=== PATIENT | female | born 1970 | race Caucasian/White ===

== ENCOUNTER → 2020-10-15 10:45 | Outpatient (BNVA) | payer BC, SELFPAY | PROVIDERS: PCP Internal Medicine; Visit Provider Internal Medicine | DX: M25.50 Pain in unspecified joint (principal); G89.29 Other chronic pain; M54.2 Cervicalgia; M54.9 Dorsalgia, unspecified; R53.83 Other fatigue; Z11.59 Encounter for screening for other viral diseases; F17.210 Nicotine dependence, cigarettes, uncomplicated | CPT/HCPCS: 99204 ==

== ENCOUNTER 2020-10-15 12:03 | Outpatient (CLI) | payer BC, SELFPAY ==
--- NOTE | 2020-10-15 12:12 | XR_ITS ---
WS: [id number] Left hand, 2 views, 10/15/2020 Clinical Data: M25.50 - Pain in unspecified joint Comparison: None. Findings: No fractures or dislocations are seen. The soft tissues are unremarkable. The joint spaces are normal No periarticular demineralization or calcification is seen. XR/XR hand LT 2V [id number] Impression: Negative left hand.
--- NOTE | 2020-10-15 12:12 | XR_ITS ---
WS: [id number] Left shoulder, 2 views, 10/15/2020 Clinical Data: M25.50 - Pain in unspecified joint Comparison: None. Findings: No fractures or dislocations are seen. The AC joint is normal. The adjacent left clavicle, left scapu la and ribs are normal. The soft tissues are unremarkable. XR/XR shoulder LT min 2V* [id number] Impression: Negative left shoulder.
--- NOTE | 2020-10-15 12:12 | XR_ITS ---
WS: [id number] Right shoulder, 2 views, 10/15/2020 Clinical Data: M25.50 - Pain in unspecified joint Comparison: None. Findings: No fractures or dislocations are seen. The AC joint is normal. The adjacent right clavicle, right sca pula and ribs are normal. The soft tissues are unremarkable. XR/XR shoulder RT min 2V* [id number] Impression: Negative right shoulder.
--- NOTE | 2020-10-15 12:12 | XR_ITS ---
WS: [id number] Right hand, 2 views, 10/15/2020 Clinical Data: M25.50 - Pain in unspecified joint Comparison: None. Findings: No fractures or dislocations are seen. The soft tissues are unremarkable. The joint space s are normal No periarticular demineralization or calcifications are seen. XR/XR hand RT 2V [id number] Impression: Negative right hand.
--- NOTE | 2020-10-15 12:12 | XR_ITS ---
WS: [id number] Sacroiliac joints, 3 views, 10/15/2020 Clinical Data: L40.9 - Psoriasis, unspecified Comparison: None. Findings: The SI joints are normal in width. No erosion, sclerosis or destruction is seen. There are no fractur es or dislocations. There is lipping of the acetabulum of both hips. The adjacent visualized pelvis unremarkable. XR/XR sacroiliac jts 3V [id number] Impression: 1. Negative SI joints. 2. Mild osteoarthritis of both hips.
[2020-10-15 12:42] LABS: Basophils % 0.6 %; Eosinophils # 0.1 10^3/uL (0.0-0.8); Eosinophils % 1.2 %; Hematocrit 40.4 % (37.0-47.0); Hemoglobin 13.9 g/dL (11.5-15.3); Lymphocytes # 2.5 10^3/uL (0.8-4.8); Lymphocytes % 37.6 %; Mean Corpuscular HGB Conc 34.4 g/dL (30.0-36.0); Monocytes # 0.5 10^3/uL (0.2-0.9); Monocytes % 7.5 %; Neutrophils # 3.54 10^3/uL (1.8-7.7); Nucleated Red Blood Cells % 0 %; Platelet Count 216 10^3/cmm (130-400); Red Blood Count 4.49 10^6/uL (4.1-5.3); Red Cell Distribution Width 11.3 % (12.1-15.1); White Blood Count 6.7 10^3/uL (4.0-10.0)
[2020-10-15 13:04] LABS: Add Urine Microscopic? YES; Bilirubin Urine Neg (Negative); Blood Urine Neg (Negative); Glucose Urine UA 4+ (Normal); Ketones Urine Negative (Negative); Leukocyte Esterase Urine Negative (Negative); Nitrate Urine Positive (Negative); Protein Urine Neg (Negative); Specific Gravity, Urine 1.015 (1.005-1.030); Urine Appearance Clear (CLEAR); Urine Color Straw (Yellow); Urobilinogen Urine Norm (Negative); pH Urine 5 (5-7)
[2020-10-15 13:06] LABS: Add Urine Culture? Yes; Bacteria Urine 2+ /hpf
[2020-10-15 13:17] LABS: 25 Hydroxy Vitamin D 35 ng/mL (30-100); Alanine Aminotransferase 16 U/L (0-33); Albumin Level 4.1 g/dL (3.5-5.2); Alkaline Phosphatase 58 IU/L (35-105); Aspartate Amino Transferase 12 U/L (0-32); Blood Urea Nitrogen 7 mg/dL (6-20); C Reactive Protein 2.5 mg/L (0.0-4.9); Calcium 8.2 mg/dL (8.5-10.5); Carbon Dioxide 22 mmol/L (22-29); Chloride 101 mmol/L (98-107); Creatine Phosphokinase 82 U/L (26-192); Ferritin 368 ng/mL (15-150); Globulin 2.7 g/dL (1.3-4.6); Glomerular Filtration Rate 88.6 mL/min (90-130); Glucose 311 mg/dL (65-115); Iron 92 ug/dL (37-145); Magnesium 1.6 mg/dL (1.7-2.3); Osmolality Calculated 290 mOsm/kg (285-295); Phosphorus 2.3 mg/dL (2.5-4.5); Sodium 135 mmol/L (136-145); Thyroid Stimulating Hormone 1.75 uIU/mL (0.27-4.20); Total Bilirubin 0.5 mg/dL (0.15-1.2); Total Protein 6.8 g/dL (6.6-8.7); Vitamin B12 1402 pg/mL (232-1245)
[2020-10-15 13:24] LABS: Cortisol Random 6.61 ug/dL (2.47-19.5); Hepatitis B Core AB, Total Non-Reactive (Nonreactive); Hepatitis B Surface Antigen Non-Reactive (Nonreactive); Hepatitis C Virus Antibody Non-Reactive (Nonreactive)
[2020-10-15 13:34] LABS: Calcium 8.7 mg/dL (8.5-10.5)
[2020-10-15 13:46] LABS: Erythrocyte Sedimentation Rate 22 mm/hr (0-15)
[2020-10-15 13:48] LABS: Free T4 Free Thyroxine 1.35 ng/dL (0.82-1.77)
[2020-10-15 14:11] LABS: Parathyroid Hormone 15.2 pg/mL (15-65)
[2020-10-16 10:42] LABS: COMPLEMENT COMPONENT C3C 155 mg/dL (83-193); COMPLEMENT COMPONENT C4C 32 mg/dL (15-57)
[2020-10-16 12:27] LABS: Lymes IGG WB <0.90 index
[2020-10-16 13:32] LABS: CENTROMERE B ANTIBODY <1.0 NEG AI (<1.0 NEG); Cyclic Citrullinated Peptide <16 UNITS; JO-1 ANTIBODY <1.0 NEG AI (<1.0 NEG); RNP ANTIBODY <1.0 NEG AI (<1.0 NEG); SCL-70 ANTIBODY <1.0 NEG AI (<1.0 NEG); SJOGREN'S ANTIBODY (SS-A) <1.0 NEG AI (<1.0 NEG); SM ANTIBODY <1.0 NEG AI (<1.0 NEG); SS-B <1.0 NEG AI (<1.0 NEG)
[2020-10-16 15:48] LABS: ANA SCREEN, IFA NEGATIVE (NEGATIVE); THYROID PEROXIDASE ANTIBODIES 9 IU/mL (<9)
[2020-10-17 13:08] LABS: COMPLEMENT, TOTAL (CH50) >60 U/mL (31-60)
[2020-10-17 22:08] LABS: Immunoglobulin A 289 mg/dL (47-310)
[2020-10-18 16:33] LABS: Tissue Transglutaminase IgA Ab <1 U/mL; Tissue transglutaminase Ab.IgG <1 U/mL
[2020-10-19 23:37] LABS: DNA AB (DS) CRITHIDIA,IFA NEGATIVE (NEGATIVE)
[2020-10-21 17:27] LABS: Gliadin Ab.IgA 13 U (<20); Gliadin Ab.IgG 1 U (<20)
== END 2020-10-15 12:04 | disposition home or self-care (01) ==
PROVIDERS: PCP Internal Medicine; Visit Provider Internal Medicine
DX: L40.9 Psoriasis, unspecified (principal); M25.50 Pain in unspecified joint; Z11.59 Encounter for screening for other viral diseases
CPT/HCPCS: 36415; 72202; 73030; 73120; 80053; 81001; 82306; 82310; 82533; 82550; 82607; 82728; 82784; 83516; 83540; 83735; 83970; 84100; 84439; 84443; 84550; 85025; 85651; 86140; 86160; 86162; 86235; 86255; 86376; 86617; 86704; 86803; 87077; 87086; 87186; 87340

== ENCOUNTER → 2020-11-14 09:48 | Outpatient (BNVA) | payer BC, SELFPAY | PROVIDERS: PCP Internal Medicine; Visit Provider Internal Medicine | DX: M25.50 Pain in unspecified joint (principal); R53.83 Other fatigue; E11.65 Type 2 diabetes mellitus with hyperglycemia; R76.8 Other specified abnormal immunological findings in serum; E83.42 Hypomagnesemia; E83.39 Other disorders of phosphorus metabolism; M54.2 Cervicalgia; F17.210 Nicotine dependence, cigarettes, uncomplicated | CPT/HCPCS: 99214 ==